=== PATIENT | female | born 1935 | race African-American/Black ===

== ENCOUNTER 2017-06-19 05:41 | Emergency (ER) | payer MEDICARE, OTHER ==
[~2017-06-19] VITALS: Ht 157.5 cm; Wt 90.0 kg
[~2017-06-19 05:41] MED LIST: AMLO10TA55 PO; DIPH50CA4 PO; LEVO75TA4; LISI20TA PO; MELO10PO MC; METF1000 PO; NAPR500T4 PO; OXYB5 GT; OXYB5TAB10 PO; PREM625 PO; TRAZ150T79 PO
[2017-06-19 05:57] LABS: GLUCOSE,POINT OF CARE 78 MG/DL (70-110)
[2017-06-19 06:12] LABS: BASOPHILS # (AUTO) 0.03 K/uL (0.00-0.20); BASOPHILS % (AUTO) 0.4 % (0.0-2.0); EOSINOPHILS # (AUTO) 0.26 K/uL (0.00-0.70); EOSINOPHILS % (AUTO) 3.24 % (1.0-6.0); HEMATOCRIT 33.3 % (36-46); HEMOGLOBIN 10.9 g/dL (12.0-16.0); LYMPHOCYTES # (AUTO) 2.1 K/uL (1.0-4.8); LYMPHOCYTES % (AUTO) 26.4 % (22.0-44.0); MEAN CORPUSCULAR HEMOGLOBIN 28.9 pg (26.0-34.0); MEAN CORPUSCULAR HGB CONC 32.6 G/dL (31.0-37.0); MEAN CORPUSCULAR VOLUME 89 fL (80-100); MONOCYTES # (AUTO) 0.9 K/uL (0.1-1.0); MONOCYTES % (AUTO) 10.8 % (2.0-9.0); NEUTROPHILS # (AUTO) 4.7 K/uL (1.8-7.7); NEUTROPHILS % (AUTO) 59.2 % (40.0-70.0); PLATELET COUNT (AUTO) 342 K/uL (150-450); RED BLOOD CELL COUNT(AUTO) 3.75 MIL/uL (4.00-5.20); RED CELL DISTRIBUTION WIDTH 16.5 % (11.5-14.5); WHITE BLOOD COUNT (AUTO) 7.9 K/uL (4.5-11.0)
[2017-06-19 06:29] LABS: ANION GAP 6 mmol/L (8-16); CARBON DIOXIDE 31 mmol/L (22-29); CHLORIDE 103 mmol/L (98-107); CREATININE 1.27 mg/dL (0.60-1.30); GLOMERULAR FILTR. RATE CALC 49 mL/min (>60); POTASSIUM 4.2 mmol/L (3.5-5.1); SODIUM SERUM 140 mmol/L (136-145); UREA NITROGEN, BLOOD 24 mg/dL (7-18)
[2017-06-19 06:53] LABS: ALANINE AMINOTRANSFERASE 23 U/L (12-78); ALBUMIN 3.7 g/dL (3.4-5.0); ASPARTATE AMINOTRANSFERASE 16 U/L (15-37); BILIRUBIN,TOTAL 0.3 mg/dL (0.1-1.0); CREATINE KINASE MB 1.7 ng/mL (0-5); CREATINE KINASE, TOTAL 199 U/L (26-192); TOTAL PROTEIN, SERUM 7.5 g/dL (6.4-8.2)
[2017-06-19 08:01] LABS: GLUCOSE, URINE (UA) NEGATIVE (NEGATIVE); KETONES,URINE NEGATIVE (NEGATIVE); LEUKOCYTE ESTERASE ,URINE NEGATIVE (NEGATIVE); OCCULT BLOOD,URINE NEGATIVE (NEGATIVE); PH,URINE 6.5 (5.0-8.0); PROTEIN,URINE NEGATIVE (NEGATIVE)
[2017-06-19 08:03] LABS: ADD UA MICROSCOPIC YES; APPEARANCE,URINE HAZY (CLEAR)
[2017-06-19 08:12] LABS: RBC,URINE None Seen /HPF (0-2); WBC,URINE None Seen /HPF (0-5)
[2017-06-19] MEDS: SODIUM CHLORIDE 0.9% 1,000 ML IV ONE ×2 (08:48→09:25)
[2017-06-19 09:01] VITALS: BP 138/59
== END 2017-06-19 09:45 | disposition home or self-care (01) ==
LOC: EMS 05:42
DX: E86.0 Dehydration (principal); E78.00 Pure hypercholesterolemia, unspecified; E11.9 Type 2 diabetes mellitus without complications; E03.9 Hypothyroidism, unspecified; I10 Essential (primary) hypertension; Z86.73 Personal history of transient ischemic attack (TIA), and cerebral infarction without residual deficits
CPT/HCPCS: 82962; 93005; 99285

== ENCOUNTER 2017-11-22 17:18 | Emergency (ER) | payer MEDICARE, OTHER ==
[~2017-11-22] VITALS: Ht 160 cm; Wt 80.0 kg
[~2017-11-22 17:18] MED LIST changes: -LEVO75TA4; +LEVO75TA4 PO; +NAPR-1024 PO; -NAPR500T4 PO
[2017-11-22 17:37] LABS: GLUCOSE,POINT OF CARE 176 MG/DL (70-110)
[2017-11-22 18:30] LABS: BASOPHILS % (AUTO) 0.9 % (0.0-2.0); EOSINOPHILS % (AUTO) 2.3 % (1.0-6.0); HEMATOCRIT 37.4 % (36-46); HEMOGLOBIN 12.7 g/dL (12.0-16.0); LYMPHOCYTES # (AUTO) 2.3 K/uL (1.0-4.8); LYMPHOCYTES % (AUTO) 25.6 % (22.0-44.0); MEAN CORPUSCULAR HEMOGLOBIN 29.6 pg (26.0-34.0); MEAN CORPUSCULAR VOLUME 87 fL (80-100); MONOCYTES # (AUTO) 0.9 K/uL (0.1-1.0); MONOCYTES % (AUTO) 9.5 % (2.0-9.0); NEUTROPHILS # (AUTO) 5.6 K/uL (1.8-7.7); NEUTROPHILS % (AUTO) 61.7 % (40.0-70.0); PLATELET COUNT (AUTO) 356 K/uL (150-450); RED CELL DISTRIBUTION WIDTH 16.2 % (11.5-14.5)
[2017-11-22 18:47] LABS: ANION GAP 8 mmol/L (8-16); CALCIUM, TOTAL 9.4 mg/dL (8.8-10.5); CARBON DIOXIDE 30 mmol/L (22-29); CHLORIDE 103 mmol/L (98-107); CREATININE 1.17 mg/dL (0.60-1.30); GLOMERULAR FILTR. RATE CALC 54 mL/min (>60); GLUCOSE,RANDOM 143 mg/dL (70-110); POTASSIUM 4.3 mmol/L (3.5-5.1); SODIUM SERUM 141 mmol/L (136-145); UREA NITROGEN, BLOOD 25 mg/dL (7-18)
[2017-11-22 19:13] LABS: ALANINE AMINOTRANSFERASE 33 U/L (12-78); ALBUMIN 4.2 g/dL (3.4-5.0); ALKALINE PHOSPHATASE 87 U/L (46-116); ASPARTATE AMINOTRANSFERASE 15 U/L (15-37); BILIRUBIN,TOTAL 0.3 mg/dL (0.1-1.0); CREATINE KINASE MB 4.9 ng/mL (0-5); CREATINE KINASE, TOTAL 305 U/L (26-192); PROTHROMBIN TIME 10.9 SEC (9.4-11.6); TOTAL PROTEIN, SERUM 8.3 g/dL (6.4-8.2)
[2017-11-22 19:50] LABS: B-TYPE NATRIURETIC PEPTIDE 13 pg/mL (0-100)
[2017-11-22 20:10] LABS: BILIRUBIN,URINE NEGATIVE (NEGATIVE); GLUCOSE, URINE (UA) NEGATIVE (NEGATIVE); KETONES,URINE NEGATIVE (NEGATIVE); LEUKOCYTE ESTERASE ,URINE TRACE (NEGATIVE); NITRATE,URINE NEGATIVE (NEGATIVE); OCCULT BLOOD,URINE NEGATIVE (NEGATIVE); PROTEIN,URINE NEGATIVE (NEGATIVE); UROBILINOGEN,URINE 0.2 mg/dL (<=1.0)
[2017-11-22 20:11] LABS: APPEARANCE,URINE HAZY (CLEAR)
[2017-11-22 20:22] LABS: BACTERIA,URINE Moderate /HPF (None Seen); RBC,URINE 0-2 /HPF (0-2); WBC,URINE 0-2 /HPF (0-5)
[2017-11-22 20:23] LABS: SQUAMOUS EPITHELIAL CELL,UR Few /LPF (None Seen)
[2017-11-22] MEDS ORDERED: INSLAN SQ ×2 (20:27)
[2017-11-22] MEDS ORDERED: INSULIN GLARGINE,HUM.REC.ANLOG 100 UNITS/ML SQ ONE (20:30)
[2017-11-22] MEDS ORDERED: CefTRIAXone SODIUM 1 GM in DEXTROSE 5%-WATER 10 ML IV ONE (20:30)
[2017-11-22] MEDS ORDERED: MELO-107 PO (20:32)
[2017-11-22 20:57] VITALS: BP 136/83
[2017-11-22 21:02] LABS: GLUCOSE,POINT OF CARE 106 MG/DL (70-110)
== END 2017-11-22 21:01 | disposition home or self-care (01) ==
LOC: EMS 17:19
DX: R42 Dizziness and giddiness (principal); N39.0 Urinary tract infection, site not specified; E11.9 Type 2 diabetes mellitus without complications; E78.00 Pure hypercholesterolemia, unspecified; I10 Essential (primary) hypertension; E03.9 Hypothyroidism, unspecified; Z86.73 Personal history of transient ischemic attack (TIA), and cerebral infarction without residual deficits
CPT/HCPCS: 36415; 70450; 71045; 80053; 81001; 82550; 82553; 82962; 83880; 84484; 85025; 85610; 85730; 87077; 87086; 87186; 93005; 96372; 96374; 99285; J0696; J1815; J7060

== ENCOUNTER 2019-01-06 08:20 | Emergency (ER) | payer MEDICARE, MEDICAID ==
[~2019-01-06] VITALS: Ht 157.5 cm; Wt 77.3 kg
[~2019-01-06 08:20] MED LIST changes: +INSLAN SQ; +MELO-107 PO; -MELO10PO MC; -OXYB5 GT
[2019-01-06 09:28] LABS: BASOPHILS % (AUTO) 0.8 % (0.0-2.0); EOSINOPHILS % (AUTO) 3.8 % (1.0-6.0); HEMATOCRIT 36.5 % (36-46); HEMOGLOBIN 11.8 g/dL (12.0-16.0); LYMPHOCYTES # (AUTO) 2.3 K/uL (1.0-4.8); LYMPHOCYTES % (AUTO) 27.1 % (22.0-44.0); MEAN CORPUSCULAR HGB CONC 32.4 G/dL (31.0-37.0); MEAN CORPUSCULAR VOLUME 87 fL (80-100); MONOCYTES # (AUTO) 0.8 K/uL (0.1-1.0); MONOCYTES % (AUTO) 9.2 % (2.0-9.0); NEUTROPHILS % (AUTO) 59.1 % (40.0-70.0); PLATELET COUNT (AUTO) 344 K/uL (150-450); RED BLOOD CELL COUNT(AUTO) 4.21 MIL/uL (4.00-5.20); RED CELL DISTRIBUTION WIDTH 18.3 % (11.5-14.5)
[2019-01-06 09:33] LABS: ANION GAP 7 mmol/L (8-16); CALCIUM, TOTAL 9.7 mg/dL (8.8-10.5); CARBON DIOXIDE 31 mmol/L (22-29); CHLORIDE 104 mmol/L (98-107); CREATININE 0.94 mg/dL (0.60-1.30); GLUCOSE,RANDOM 87 mg/dL (70-110); POTASSIUM 4.4 mmol/L (3.5-5.1); SODIUM SERUM 142 mmol/L (136-145); UREA NITROGEN, BLOOD 24 mg/dL (7-18)
[2019-01-06 09:34] LABS: GLOMERULAR FILTR. RATE CALC > 60 mL/min (>60)
[2019-01-06 09:39] LABS: LACTIC ACID 0.8 mmol/L (0.4-2.0)
[2019-01-06 09:46] LABS: ALANINE AMINOTRANSFERASE 26 U/L (12-78); ALBUMIN 3.8 g/dL (3.4-5.0); ALKALINE PHOSPHATASE 78 U/L (46-116); ASPARTATE AMINOTRANSFERASE 23 U/L (15-37); B-TYPE NATRIURETIC PEPTIDE 23 pg/mL (0-100); BILIRUBIN,TOTAL 0.3 mg/dL (0.1-1.0); LIPASE 83 U/L (73-393); TOTAL PROTEIN, SERUM 8.2 g/dL (6.4-8.2)
[2019-01-06 09:58] LABS: APPEARANCE,URINE CLEAR (CLEAR); BILIRUBIN,URINE NEGATIVE (NEGATIVE); GLUCOSE, URINE (UA) NEGATIVE (NEGATIVE); KETONES,URINE NEGATIVE (NEGATIVE); LEUKOCYTE ESTERASE ,URINE NEGATIVE (NEGATIVE); NITRATE,URINE NEGATIVE (NEGATIVE); OCCULT BLOOD,URINE NEGATIVE (NEGATIVE); PH,URINE 7.5 (5.0-8.0); PROTEIN,URINE NEGATIVE (NEGATIVE); UROBILINOGEN,URINE 0.2 mg/dL (<=1.0)
[2019-01-06 10:20] LABS: BACTERIA,URINE None Seen /HPF (None Seen); RBC,URINE 0-2 /HPF (0-2); SQUAMOUS EPITHELIAL CELL,UR Few /LPF (None Seen); WBC,URINE None Seen /HPF (0-5)
[2019-01-06 13:03] VITALS: BP 130/59
== END 2019-01-06 13:35 | disposition home or self-care (01) ==
LOC: EMS 08:21
DX: S01.81XA Laceration without foreign body of other part of head, initial encounter (principal); R53.1 Weakness; I10 Essential (primary) hypertension; E11.9 Type 2 diabetes mellitus without complications; E78.00 Pure hypercholesterolemia, unspecified; E03.9 Hypothyroidism, unspecified; Z91.018 Allergy to other foods; Z79.84 Long term (current) use of oral hypoglycemic drugs; Z79.4 Long term (current) use of insulin; Z79.899 Other long term (current) drug therapy; W18.39XA Other fall on same level, initial encounter; Y93.89 Activity, other specified; Y92.89 Other specified places as the place of occurrence of the external cause; Y99.8 Other external cause status
CPT/HCPCS: 51701; 70450; 83605; 93005

== ENCOUNTER 2021-07-28 09:49 | Inpatient (IN) | payer MEDICARE, OTHER ==
[~2021-07-28] VITALS: Ht 165.1 cm; Wt 76.5 kg
[~2021-07-28 09:49] MED LIST changes: +DIPH50CA38 PO; -DIPH50CA4 PO; -MELO-107 PO; -OXYB5TAB10 PO; -TRAZ150T79 PO
[2021-07-28 10:23] LABS: BASOPHILS % (AUTO) 0.6 % (0.0-2.0); EOSINOPHILS % (AUTO) 0.5 % (1.0-6.0); HEMATOCRIT 37.8 % (36-46); HEMOGLOBIN 12.7 g/dL (12.0-16.0); LYMPHOCYTES # (AUTO) 1.3 K/uL (1.0-4.8); MEAN CORPUSCULAR HGB CONC 33.7 G/dL (31.0-37.0); MEAN CORPUSCULAR VOLUME 89 fL (80-100); MONOCYTES # (AUTO) 0.5 K/uL (0.1-1.0); MONOCYTES % (AUTO) 7.4 % (2.0-9.0); NEUTROPHILS % (AUTO) 72.5 % (40.0-70.0); PLATELET COUNT (AUTO) 341 K/uL (150-450); RED BLOOD CELL COUNT(AUTO) 4.25 MIL/uL (4.00-5.20); RED CELL DISTRIBUTION WIDTH 15.2 % (11.5-14.5)
[2021-07-28 10:27] LABS: ANION GAP 9 mmol/L (8-16); CARBON DIOXIDE 29 mmol/L (22-29); CHLORIDE 107 mmol/L (98-107); CREATININE 0.92 mg/dL (0.60-1.30); GLUCOSE,RANDOM 138 mg/dL (70-110); SODIUM SERUM 145 mmol/L (136-145); UREA NITROGEN, BLOOD 21 mg/dL (7-18)
[2021-07-28 10:27] LABS: GLUCOMETER DEV NAME(LOC) ERT.5; GLUCOSE,POINT OF CARE 115 MG/DL (70-110)
[2021-07-28 10:28] LABS: CALCIUM, TOTAL 9.3 mg/dL (8.8-10.5); GLOMERULAR FILTR. RATE CALC > 60 mL/min (>60)
[2021-07-28 10:30] LABS: INR 1.1 (0.9-1.1); PROTHROMBIN TIME 11.4 SEC (9.4-11.6)
[2021-07-28 10:33] LABS: ALANINE AMINOTRANSFERASE 23 U/L (12-78); ALBUMIN 3.9 g/dL (3.4-5.0); ALKALINE PHOSPHATASE 98 U/L (46-116); ASPARTATE AMINOTRANSFERASE 25 U/L (15-37); BILIRUBIN,TOTAL 0.4 mg/dL (0.1-1.0); TOTAL PROTEIN, SERUM 8.2 g/dL (6.4-8.2)
[2021-07-28] MEDS ORDERED: LEVO50TA11 PO (10:59)
[2021-07-28] MEDS ORDERED: LISI20TA24 PO (10:59)
[2021-07-28] MEDS ORDERED: GABA-1181 PO (10:59)
[2021-07-28] MEDS ORDERED: AMLO5TAB66 PO (10:59)
[2021-07-28] MEDS ORDERED: ALBU8HFA IH (10:59)
[2021-07-28] MEDS ORDERED: HUMLIS7525 SQ (10:59)
[2021-07-28] MEDS ORDERED: ATOR20TA65 PO (10:59)
[2021-07-28] MEDS ORDERED: DULO60CA98 PO (10:59)
[2021-07-28] MEDS ORDERED: TRAZ-252 PO (10:59)
[2021-07-28] MEDS ORDERED: BACL20TA PO (10:59)
[2021-07-28] MEDS ORDERED: SODIUM CHLORIDE 0.9% 1,000 ML IV ONE (11:00)
[2021-07-28] MEDS ORDERED: ONDANSETRON HCL 4 MG/2 ML VIAL IVP PRN (11:00)
[2021-07-28] MEDS ORDERED: NAPR-1197 PO (11:29)
[2021-07-28 12:06] LABS: COVID AG,FIA SOURCE NASOPHARYNGEAL
[2021-07-28 13:51] LABS: BILIRUBIN,URINE NEGATIVE (NEGATIVE); GLUCOSE, URINE (UA) NEGATIVE (NEGATIVE); KETONES,URINE TRACE mg/dL (NEGATIVE); LEUKOCYTE ESTERASE ,URINE NEGATIVE (NEGATIVE); NITRATE,URINE NEGATIVE (NEGATIVE); OCCULT BLOOD,URINE NEGATIVE (NEGATIVE); PROTEIN,URINE NEGATIVE (NEGATIVE); UROBILINOGEN,URINE 0.2 mg/dL (<=1.0)
[2021-07-28 13:58] LABS: AMPHET/METH SCREEN,URINE NEGATIVE (NEGATIVE); BARBITURATE SCREEN, URINE NEGATIVE (NEGATIVE); BENZODIAZEPINES SCREEN,URINE NEGATIVE (NEGATIVE); CANNABINOID SCREEN,URINE NEGATIVE (NEGATIVE); COCAINE SCREEN,URINE NEGATIVE (NEGATIVE); METHADONE SCREEN, URINE NEGATIVE (NEGATIVE); OPIATE SCREEN,URINE NEGATIVE (NEGATIVE)
[2021-07-28 13:59] LABS: PHENCYCLIDINE SCREEN,URINE NEGATIVE (NEGATIVE)
[2021-07-28 14:49] LABS: APPEARANCE,URINE CLEAR (CLEAR)
[2021-07-28 14:50] LABS: BACTERIA,URINE None Seen /HPF (None Seen); RBC,URINE None Seen /HPF (0-2); WBC,URINE None Seen /HPF (0-5)
[2021-07-28] MEDS ORDERED: ALBUTEROL SULFATE 2.5 MG/0.5 ML NEB SOLUTION NEB PRN (17:15)
[2021-07-28] MEDS ORDERED: ACETAMINOPHEN 325 MG TABLET PO PRN (17:15)
[2021-07-28] MEDS ORDERED: OxyCODONE HCL/ACETAMINOPHEN 5-325 MG TABLET PO PRN (17:15)
[2021-07-28] MEDS ORDERED: MORPHINE SULFATE 2 MG/ML SYRINGE IVP PRN (17:15)
[2021-07-28] MEDS ORDERED: IPRATROPIUM BROMIDE 0.5 MG/2.5 ML NEB SOLUTION NEB PRN (17:15)
[2021-07-28] MEDS ORDERED: DEXTROSE 50%-WATER 25 GM/50 ML SYRINGE IVP PRN (17:30)
[2021-07-28] MEDS: LISINOPRIL 20 MG TABLET PO SCH (21:00)
[2021-07-28] MEDS: TraZODone HCL 50 MG TABLET PO SCH (21:00)
[2021-07-28] MEDS ORDERED: LABETALOL HCL 5 MG/ML 20 ML VIAL IVP ONE (21:00)
[2021-07-28 21:01] LABS: GLUCOMETER DEV NAME(LOC) ERT.5; GLUCOSE,POINT OF CARE 95 MG/DL (70-110)
[2021-07-28] MEDS ORDERED: HALOPERIDOL LACTATE 5 MG/ML VIAL IM ONE (22:45)
[2021-07-29] MEDS ORDERED: LABETALOL HCL 5 MG/ML 20 ML VIAL IVP PRN (00:30)
[2021-07-29] MEDS: LEVOTHYROXINE SODIUM 50 MCG TABLET PO SCH (05:39)
[2021-07-29 06:58] LABS: BASOPHILS % (AUTO) 0.3 % (0.0-2.0); EOSINOPHILS % (AUTO) 0.5 % (1.0-6.0); HEMATOCRIT 37.3 % (36-46); HEMOGLOBIN 12.7 g/dL (12.0-16.0); LYMPHOCYTES # (AUTO) 1.7 K/uL (1.0-4.8); LYMPHOCYTES % (AUTO) 19.1 % (22.0-44.0); MEAN CORPUSCULAR HEMOGLOBIN 30.3 pg (26.0-34.0); MEAN CORPUSCULAR HGB CONC 34.2 G/dL (31.0-37.0); MEAN CORPUSCULAR VOLUME 89 fL (80-100); MONOCYTES # (AUTO) 0.8 K/uL (0.1-1.0); MONOCYTES % (AUTO) 9.6 % (2.0-9.0); NEUTROPHILS # (AUTO) 6.2 K/uL (1.8-7.7); NEUTROPHILS % (AUTO) 70.5 % (40.0-70.0); PLATELET COUNT (AUTO) 390 K/uL (150-450); RED CELL DISTRIBUTION WIDTH 15.1 % (11.5-14.5)
[2021-07-29 07:14] LABS: ALANINE AMINOTRANSFERASE 26 U/L (12-78); ALBUMIN 3.6 g/dL (3.4-5.0); ALKALINE PHOSPHATASE 99 U/L (46-116); ANION GAP 12 mmol/L (8-16); ASPARTATE AMINOTRANSFERASE 28 U/L (15-37); BILIRUBIN,TOTAL 0.5 mg/dL (0.1-1.0); CARBON DIOXIDE 26 mmol/L (22-29); CHLORIDE 103 mmol/L (98-107); CREATININE 0.73 mg/dL (0.60-1.30); GLUCOSE,RANDOM 120 mg/dL (70-110); PHOSPHORUS 3.3 mg/dL (2.5-4.9); POTASSIUM 3.5 mmol/L (3.5-5.1); SODIUM SERUM 141 mmol/L (136-145); TOTAL PROTEIN, SERUM 7.8 g/dL (6.4-8.2); UREA NITROGEN, BLOOD 14 mg/dL (7-18)
[2021-07-29 07:17] LABS: HEMOGLOBIN A1C 5.5 % (3.8-5.6)
[2021-07-29 07:18] LABS: INR 1.1 (0.9-1.1); PROTHROMBIN TIME 11.7 SEC (9.4-11.6)
[2021-07-29 07:26] LABS: GLOMERULAR FILTR. RATE CALC > 60 mL/min (>60)
[2021-07-29] MEDS: DULoxetine HCL 60 MG CAPSULE PO SCH (08:03)
[2021-07-29] MEDS: LISINOPRIL 20 MG TABLET PO SCH ×2 (08:03→21:00)
[2021-07-29] MEDS: ATORVASTATIN CALCIUM 20 MG TABLET PO SCH (08:03)
[2021-07-29] MEDS ORDERED: LABETALOL HCL 5 MG/ML IV PRN (20:00)
[2021-07-29 20:30] VITALS: BP 160/80
[2021-07-29 20:35] LABS: GLUCOSE,POINT OF CARE 119 MG/DL (70-110)
[2021-07-29] MEDS: TraZODone HCL 50 MG TABLET PO SCH (21:00)
[2021-07-30] VITALS (7 sets, daily range): BP systolic 149–165; BP diastolic 74–90
[2021-07-30 02:07] LABS: HEPATITIS C AB (EIA) <0.1 s/co ratio (0.0-0.9)
[2021-07-30 03:06] LABS: HIV 1-2 SCREEN 4TH GEN W/RFLX Non Reactive (Non Reactive)
[2021-07-30] MEDS: LEVOTHYROXINE SODIUM 50 MCG TABLET PO SCH (06:21)
[2021-07-30 06:36] LABS: GLUCOMETER DEV NAME(LOC) 5N.1C; GLUCOSE,POINT OF CARE 108 MG/DL (70-110)
[2021-07-30] MEDS ORDERED: PNEUMOCOCCAL VACCINE POLYVALENT 0.5 ML VIAL [PPSV23] IM. ONE (07:30)
[2021-07-30] MEDS: LISINOPRIL 20 MG TABLET PO SCH ×3 (08:50→21:00)
[2021-07-30] MEDS: ATORVASTATIN CALCIUM 20 MG TABLET PO SCH (08:50)
[2021-07-30] MEDS: DULoxetine HCL 60 MG CAPSULE PO SCH (08:50)
[2021-07-30] MEDS: DEXTROSE 5%-0.45% SODIUM CHL 1,000 ML IV SCH (12:46)
[2021-07-30 14:11] LABS: GLUCOMETER DEV NAME(LOC) 5S.2B; GLUCOSE,POINT OF CARE 96 MG/DL (70-110)
[2021-07-30 17:56] LABS: GLUCOMETER DEV NAME(LOC) 5N.1C; GLUCOSE,POINT OF CARE 111 MG/DL (70-110)
[2021-07-30] MEDS: TraZODone HCL 50 MG TABLET PO SCH (21:00)
[2021-07-31] MEDS: DEXTROSE 5%-0.45% SODIUM CHL 1,000 ML IV SCH ×2 (01:39→15:01)
[2021-07-31 03:47] VITALS: BP 160/77
[2021-07-31] MEDS: LEVOTHYROXINE SODIUM 50 MCG TABLET PO SCH (05:10)
[2021-07-31 06:31] LABS: GLUCOMETER DEV NAME(LOC) 5N.1C; GLUCOSE,POINT OF CARE 125 MG/DL (70-110)
[2021-07-31 08:32] VITALS: BP 160/67
[2021-07-31 11:41] VITALS: BP 160/87
[2021-07-31] MEDS: LISINOPRIL 20 MG TABLET PO SCH ×2 (12:57→22:16)
[2021-07-31] MEDS: DULoxetine HCL 60 MG CAPSULE PO SCH (12:57)
[2021-07-31] MEDS: ATORVASTATIN CALCIUM 20 MG TABLET PO SCH (12:57)
[2021-07-31 15:26] VITALS: BP 154/82
[2021-07-31] MEDS: TraZODone HCL 50 MG TABLET PO SCH (22:16)
[2021-07-31 22:17] VITALS: BP 153/84
[2021-07-31 22:37] LABS: GLUCOMETER DEV NAME(LOC) 5S.2B; GLUCOSE,POINT OF CARE 111 MG/DL (70-110)
[2021-07-31 22:37] LABS: GLUCOMETER DEV NAME(LOC) 5S.2B; GLUCOSE,POINT OF CARE 118 MG/DL (70-110)
[2021-08-01] VITALS (7 sets, daily range): BP systolic 108–139; BP diastolic 54–70
[2021-08-01] MEDS: DEXTROSE 5%-0.45% SODIUM CHL 1,000 ML IV SCH ×2 (04:33→18:22)
[2021-08-01] MEDS: LEVOTHYROXINE SODIUM 50 MCG TABLET PO SCH (05:55)
[2021-08-01] MEDS: ATORVASTATIN CALCIUM 20 MG TABLET PO SCH (07:53)
[2021-08-01] MEDS: DULoxetine HCL 60 MG CAPSULE PO SCH (07:53)
[2021-08-01] MEDS: LISINOPRIL 20 MG TABLET PO SCH ×2 (07:53→21:00)
[2021-08-01 11:16] LABS: GLUCOMETER DEV NAME(LOC) 5N.1C; GLUCOSE,POINT OF CARE 110 MG/DL (70-110)
[2021-08-01] MEDS: INSULIN LISPRO 100 UNITS/ML SQ PRN (11:33)
[2021-08-01 11:51] LABS: GLUCOMETER DEV NAME(LOC) 5S.2B; GLUCOSE,POINT OF CARE 152 MG/DL (70-110)
[2021-08-01 17:51] LABS: GLUCOMETER DEV NAME(LOC) 5N.3; GLUCOSE,POINT OF CARE 98 MG/DL (70-110)
[2021-08-01 21:12] LABS: GLUCOMETER DEV NAME(LOC) 5S.1; GLUCOSE,POINT OF CARE 121 MG/DL (70-110)
[2021-08-01] MEDS: TraZODone HCL 50 MG TABLET PO SCH (22:19)
[2021-08-01] MEDS: NYSTATIN 15 GM POWDER BOTTLE TP SCH (22:20)
[2021-08-02 03:56] VITALS: BP 157/70
[2021-08-02] MEDS: LEVOTHYROXINE SODIUM 50 MCG TABLET PO SCH (05:52)
[2021-08-02] MEDS: DEXTROSE 5%-0.45% SODIUM CHL 1,000 ML IV SCH ×2 (05:52→22:07)
[2021-08-02 07:45] LABS: BASOPHILS % (AUTO) 0.5 % (0.0-2.0); EOSINOPHILS % (AUTO) 4.6 % (1.0-6.0); HEMATOCRIT 38.6 % (36-46); LYMPHOCYTES # (AUTO) 2.3 K/uL (1.0-4.8); LYMPHOCYTES % (AUTO) 33.6 % (22.0-44.0); MEAN CORPUSCULAR HGB CONC 33.6 G/dL (31.0-37.0); MEAN CORPUSCULAR VOLUME 89 fL (80-100); MONOCYTES # (AUTO) 0.8 K/uL (0.1-1.0); MONOCYTES % (AUTO) 11.9 % (2.0-9.0); NEUTROPHILS # (AUTO) 3.4 K/uL (1.8-7.7); NEUTROPHILS % (AUTO) 49.4 % (40.0-70.0); PLATELET COUNT (AUTO) 334 K/uL (150-450); RED BLOOD CELL COUNT(AUTO) 4.33 MIL/uL (4.00-5.20); RED CELL DISTRIBUTION WIDTH 14.8 % (11.5-14.5)
[2021-08-02] MEDS: DULoxetine HCL 60 MG CAPSULE PO SCH (07:46)
[2021-08-02] MEDS: ATORVASTATIN CALCIUM 20 MG TABLET PO SCH (07:46)
[2021-08-02] MEDS: LISINOPRIL 20 MG TABLET PO SCH ×2 (07:46→22:06)
[2021-08-02 08:04] LABS: ALANINE AMINOTRANSFERASE 25 U/L (12-78); ALBUMIN 2.9 g/dL (3.4-5.0); ALKALINE PHOSPHATASE 94 U/L (46-116); ANION GAP 5 mmol/L (8-16); ASPARTATE AMINOTRANSFERASE 25 U/L (15-37); BILIRUBIN,TOTAL 0.5 mg/dL (0.1-1.0); CALCIUM, TOTAL 8.2 mg/dL (8.8-10.5); CARBON DIOXIDE 30 mmol/L (22-29); CHLORIDE 108 mmol/L (98-107); CREATININE 0.72 mg/dL (0.60-1.30); GLUCOSE,RANDOM 107 mg/dL (70-110); PHOSPHORUS 3.5 mg/dL (2.5-4.9); POTASSIUM 3.4 mmol/L (3.5-5.1); SODIUM SERUM 143 mmol/L (136-145); TOTAL PROTEIN, SERUM 6.6 g/dL (6.4-8.2); UREA NITROGEN, BLOOD 14 mg/dL (7-18)
[2021-08-02 08:07] LABS: GLOMERULAR FILTR. RATE CALC > 60 mL/min (>60)
[2021-08-02 08:14] VITALS: BP 150/65
[2021-08-02 11:50] VITALS: BP 134/63
[2021-08-02 12:42] LABS: GLUCOMETER DEV NAME(LOC) 5S.1; GLUCOSE,POINT OF CARE 95 MG/DL (70-110)
[2021-08-02 12:42] LABS: GLUCOMETER DEV NAME(LOC) 5S.1; GLUCOSE,POINT OF CARE 103 MG/DL (70-110)
[2021-08-02 12:42] LABS: GLUCOMETER DEV NAME(LOC) 5S.1; GLUCOSE,POINT OF CARE 93 MG/DL (70-110)
[2021-08-02 16:09] VITALS: BP 144/69
[2021-08-02 18:12] LABS: GLUCOMETER DEV NAME(LOC) 5S.1; GLUCOSE,POINT OF CARE 97 MG/DL (70-110)
[2021-08-02 19:06] VITALS: BP 151/74
[2021-08-02 20:56] LABS: GLUCOMETER DEV NAME(LOC) 5N.1C; GLUCOSE,POINT OF CARE 137 MG/DL (70-110)
[2021-08-02] MEDS: TraZODone HCL 50 MG TABLET PO SCH (22:06)
[2021-08-02] MEDS: NYSTATIN 15 GM POWDER BOTTLE TP SCH (22:06)
[2021-08-02 23:14] VITALS: BP 153/84
[2021-08-03 03:18] VITALS: BP 155/77
[2021-08-03] MEDS: LEVOTHYROXINE SODIUM 50 MCG TABLET PO SCH (06:48)
[2021-08-03 07:02] LABS: GLUCOMETER DEV NAME(LOC) 5N.1C; GLUCOSE,POINT OF CARE 129 MG/DL (70-110)
[2021-08-03 07:06] VITALS: BP 151/76
[2021-08-03] MEDS: LISINOPRIL 20 MG TABLET PO SCH ×2 (08:08→20:57)
[2021-08-03] MEDS: DEXTROSE 5%-0.45% SODIUM CHL 1,000 ML IV SCH ×2 (08:08→22:30)
[2021-08-03] MEDS: ATORVASTATIN CALCIUM 20 MG TABLET PO SCH (08:08)
[2021-08-03] MEDS: DULoxetine HCL 60 MG CAPSULE PO SCH (08:08)
[2021-08-03 11:22] VITALS: BP 147/82
[2021-08-03 15:44] VITALS: BP 162/74
[2021-08-03] MEDS: HydrALAZINE HCL 20 MG/ML VIAL IVP PRN ×2 (15:53→23:40)
[2021-08-03 15:54] VITALS: BP 171/91
[2021-08-03 20:25] VITALS: BP 150/86
[2021-08-03] MEDS: TraZODone HCL 50 MG TABLET PO SCH (20:55)
[2021-08-03] MEDS: NYSTATIN 15 GM POWDER BOTTLE TP SCH (20:58)
[2021-08-04 00:35] VITALS: BP 177/77
[2021-08-04 04:35] VITALS: BP 149/69
[2021-08-04] MEDS: LEVOTHYROXINE SODIUM 50 MCG TABLET PO SCH (05:49)
[2021-08-04 08:01] VITALS: BP 128/73
[2021-08-04] MEDS: LISINOPRIL 20 MG TABLET PO SCH (08:19)
[2021-08-04] MEDS: ATORVASTATIN CALCIUM 20 MG TABLET PO SCH (08:19)
[2021-08-04] MEDS: DULoxetine HCL 60 MG CAPSULE PO SCH (08:19)
[2021-08-04 08:22] LABS: GLUCOMETER DEV NAME(LOC) 5S.1; GLUCOSE,POINT OF CARE 107 MG/DL (70-110)
[2021-08-04 08:22] LABS: GLUCOMETER DEV NAME(LOC) 5S.1; GLUCOSE,POINT OF CARE 104 MG/DL (70-110)
[2021-08-04 08:22] LABS: GLUCOMETER DEV NAME(LOC) 5N.1C; GLUCOSE,POINT OF CARE 129 MG/DL (70-110)
[2021-08-04 08:22] LABS: GLUCOMETER DEV NAME(LOC) 5S.1; GLUCOSE,POINT OF CARE 100 MG/DL (70-110)
[2021-08-04] MEDS: INSULIN LISPRO 100 UNITS/ML SQ PRN (11:12)
[2021-08-04] MEDS: DEXTROSE 5%-0.45% SODIUM CHL 1,000 ML IV SCH (11:13)
[2021-08-04 11:40] VITALS: BP 129/60
[2021-08-04 13:31] LABS: GLUCOMETER DEV NAME(LOC) 5S.2B; GLUCOSE,POINT OF CARE 147 MG/DL (70-110)
[2021-08-04] MEDS ORDERED: ASPI-1450 PO (14:26)
[2021-08-04 15:47] VITALS: BP 114/50
== END 2021-08-04 17:10 | disposition home health service (06) | DRG 66 ==
LOC: EMS 10:24 → 5S 07-29 17:52
PROVIDERS: ADMIT Internal Medicine; ATTEND Internal Medicine
DX: I63.9 Cerebral infarction, unspecified (principal); I67.1 Cerebral aneurysm, nonruptured; Z20.822 Contact with and (suspected) exposure to COVID-19; I67.2 Cerebral atherosclerosis; I10 Essential (primary) hypertension; R29.729 NIHSS score 29; E78.00 Pure hypercholesterolemia, unspecified; E03.9 Hypothyroidism, unspecified; R47.01 Aphasia; K21.9 Gastro-esophageal reflux disease without esophagitis; E78.5 Hyperlipidemia, unspecified; E11.9 Type 2 diabetes mellitus without complications; Z79.899 Other long term (current) drug therapy; Z79.4 Long term (current) use of insulin; I69.398 Other sequelae of cerebral infarction; L89.152 Pressure ulcer of sacral region, stage 2
CPT/HCPCS: 51702; 70496; 70498; 71045; 80053; 80074; 81001; 82962; 83036; 83735; 84100; 84484; 85025; 85610; 87389; 92526; 92610; 93005; 93306; 93880; 97110; 97162; 97167; 97530; 97535; 99291; J0360; J1630; J3490; J7030; 36415-L1; 36415-TC; 70450; 70450-TC

== ENCOUNTER 2024-11-15 22:17 | Emergency (ER) | payer MEDICARE, OTHER ==
[~2024-11-15] VITALS: Ht 162.6 cm; Wt 50.0 kg
[~2024-11-15 22:17] MED LIST changes: +ACET650S24 PR; +ALBU18HF12 IH; +ALBU2.5V39 NEB; -AMLO10TA55 PO; +AMLO5TAB66 PO; +ASPI-1444 PO; +ATOR20TA65 PO; -DIPH50CA38 PO; +DOCU-385 PO; +EMPA10TA3 PO; +FURO20TA5 PO; -INSLAN SQ; +INSU100V SQ; +IPRA0.2S49 NEB; +LATA2.5D14 OU; +LEVO-108 PO; -LEVO75TA4 PO; -LISI20TA PO; +MAGN-169 PO; -METF1000 PO; -NAPR-1024 PO; -PREM625 PO; +TRAZ-252 PO
[2024-11-15 22:48] VITALS: TEMP 98.4
[2024-11-16 00:24] VITALS: BP 133/70; PULSE 75; RESP 17; O2SAT 96
[2024-11-16 00:48] LABS: BASOPHILS % (AUTO) 0.6 % (0.0-2.0); EOSINOPHILS % (AUTO) 3.3 % (1.0-6.0); HEMATOCRIT 39.1 % (36-46); HEMOGLOBIN 13.1 g/dL (12.0-16.0); LYMPHOCYTES # (AUTO) 1.9 K/uL (1.0-4.8); LYMPHOCYTES % (AUTO) 34.5 % (22.0-44.0); MEAN CORPUSCULAR HEMOGLOBIN 30.1 pg (26.0-34.0); MEAN CORPUSCULAR HGB CONC 33.5 G/dL (31.0-37.0); MEAN CORPUSCULAR VOLUME 90 fL (80-100); MONOCYTES # (AUTO) 0.6 K/uL (0.1-1.0); MONOCYTES % (AUTO) 10.8 % (2.0-9.0); NEUTROPHILS # (AUTO) 2.8 K/uL (1.8-7.7); NEUTROPHILS % (AUTO) 50.8 % (40.0-70.0); PLATELET COUNT (AUTO) 280 K/uL (150-450); RED BLOOD CELL COUNT(AUTO) 4.34 MIL/uL (4.00-5.20); RED CELL DISTRIBUTION WIDTH 14.9 % (11.5-14.5); WHITE BLOOD COUNT (AUTO) 5.6 K/uL (4.5-11.0)
[2024-11-16 00:51] LABS: CREATININE 1.07 mg/dL (0.60-1.30); POTASSIUM 3.6 mmol/L (3.5-5.1)
[2024-11-16 00:52] LABS: CALCIUM, TOTAL 8.6 mg/dL (8.8-10.5)
[2024-11-16] MEDS: POLYETHYLENE GLYCOL 3350 17 GM PACKET PO ONE (02:39)
[2024-11-16] MEDS: BENZONATATE 100 MG CAPSULE PO ONE (02:39)
[2024-11-16] MEDS ORDERED: POLY119P3 PO (03:49)
[2024-11-16] MEDS ORDERED: BENZ-227 PO (03:49)
== END 2024-11-16 05:04 | disposition home or self-care (01) ==
LOC: EMS 22:24
DX: R01.1 Cardiac murmur, unspecified (principal); K59.00 Constipation, unspecified; R05.9 Cough, unspecified; E11.9 Type 2 diabetes mellitus without complications; I10 Essential (primary) hypertension; J45.909 Unspecified asthma, uncomplicated; E78.00 Pure hypercholesterolemia, unspecified; E03.9 Hypothyroidism, unspecified; Z91.018 Allergy to other foods; Z79.82 Long term (current) use of aspirin; Z79.899 Other long term (current) drug therapy
CPT/HCPCS: 71045; 80048; 85025; 99284; 36415-L1; 36415-TC